=== PATIENT | female | born 1985 | race Caucasian/White ===

== ENCOUNTER 2022-12-06 18:42 | Emergency (ER) | payer OTHER, SELFPAY ==
[2022-12-06 19:03] VITALS: BP 123/81; PULSE 86; RESP 14; TEMP 36.8; O2SAT 99; BMI 27.3
--- NOTE | 2022-12-06 19:14 | DI.RAD.S_ITS ---
PROCEDURE: XR LUMBAR SPINE 2-3V INDICATIONS: Lower back/coccyx pain, numbness upper thighs TECHNIQUE: 3 views of the lumbar spine were acquired. COMPARISON: None. FINDINGS: Bones: 5 [id number] vertebrae are present. There is a minimal leftward curvature of the lumbar spine centered at L3. There is minimal retrolisthesis at L2-L3 and L3-L4. No vertebral body compression fractures. No suspicious bony lesions. Soft tissues: Overlying bowel gas pattern is normal. No suspicious soft tissue calcifications. IMPRESSION: 1. Minimal leftward curvature of the lumbar spine and minimal retrolisthesis at L2-L3 and L3-L4.6 Dictated by: James Klein M.D. on 12/06/2022 at 20:52 Approved by: James Klein M.D. on 12/06/2022 at 20:53
--- NOTE | 2022-12-06 20:30 | PC.NURSE ---
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 reports was sore after that day but states today went to go put pants on and states had several sharp twinges in her lower back causing sharp pain. Pain equal on both sides of lower back. Running spine, pt reports increased pain right about pelvic area. denies any incontinence of bowel or bladder. States has had numbness to outside of upper thighs worse with standing. has had increased fatigue starting Saturday. Did check a test at home which was negative. unsure what the fatigue is from. Has taken excedrin at home with no relief to lower back pain.
[2022-12-06 20:35] VITALS: BP 119/73; PULSE 90; RESP 15; O2SAT 96
--- NOTE | 2022-12-06 21:21 | ED.BACK ---
HPI - Back Pain/Injury General Chief Complaint: Back Pain/Injury Stated Complaint: Lower back pain Time Seen by Provider: 12/06/22 20:30 Source: patient and family Mode of arrival: Ambulatory History of Present Illness HPI Narrative: Patient is a 37-year-old female who is here for evaluation of bilateral lower back pain. She states that she initially hurt her back a couple weeks ago. She was still able to get around and do things but then with a past 24 hour she bent over to pick something up off the ground and had an increase in pain and lower back. No fevers. No urinary symptoms. Does radiate to her legs. No change in bowel habits. Related Data Previous Rx's Medication Instructions Recorded cyclobenzaprine 10 mg tablet 10 mg PO TID PRN muscle spasm #21 12/06/22 tabs prednisone 20 mg tablet 20 mg PO DAILY 6 days #6 tabs 12/06/22 tramadol 50 mg tablet 50 mg PO TID PRN pain #10 tabs 12/06/22 Allergies Allergy/AdvReac Type Severity Reaction Status Date / Time No Known Drug Allergies Allergy Verified 12/06/22 19:12 Review of Systems Constitutional Constitutional: Reports system reviewed and no additional complaints, except as documented Musculoskeletal Musculoskeletal: Reports system reviewed and no additional complaints, except as documented Integumentary/Breasts Skin/Breast: Reports system reviewed and no additional complaints, except as documented Neurologic Neurologic: Reports system reviewed and no additional complaints, except as documented Hematologic/Lymphatic On Anticoagulants: No Patient History Social History Smoking Status: Current every day smoker Smoking Status: Current every day smoker alcohol intake frequency: holidays/special occasions only Substance Use Type: does not use Exam Initial Vital Signs Initial Vital Signs: Vital Signs Temperature 98.3 F 12/06/22 19:03 Pulse Rate 86 12/06/22 19:03 Respiratory Rate 14 12/06/22 19:03 Blood Pressure 123/81 12/06/22 19:03 Pulse Oximetry 99 12/06/22 19:03 Oxygen Delivery Method Room Air 12/06/22 19:03 HENMT Head: normal to inspection and normocephalic Resp Effort & Inspection: normal respiratory effort Cardio Rate: regular rate Back/Spine/Pelvis Thoracic/Lumbar Spine: No paraspinal tenderness, No thoracic spinal tenderness and No lumbar spinal tenderness Sacroiliac Joints: tender to palpation bilateral Neuro General: patient alert and patient awake Course Orders Ordered: ED Orders 12/06/22 19:14 XR lumbar spine 2-3V Stat Discontinued Medications Hydrocodone Bitart/Acetaminophen (Hydrocodone/Acet 5/325 Tablet) 1 tab PO NOW ONE Stop: 12/06/22 21:22 Last Admin: 12/06/22 21:32 Dose: 1 tab Documented By: NORM Ketorolac Tromethamine (Ketorolac 30 Mg/Ml Vial) 30 mg IM NOW ONE Stop: 12/06/22 21:22 Last Admin: 12/06/22 21:33 Dose: 30 mg Documented By: NORM Prednisone (Prednisone 20 Mg Tablet) 20 mg PO NOW ONE Stop: 12/06/22 21:22 Last Admin: 12/06/22 21:33 Dose: 20 mg Documented By: NORM Vital Signs Vital signs: Vital Signs - 8 hr 12/06/22 19:03 12/06/22 20:35 Temperature 98.3 F Pulse Rate 86 90 Respiratory Rate 14 15 Blood Pressure 123/81 119/73 Pulse Oximetry 99 96 Oxygen Delivery Method Room Air Room Air MDM - Back Pain/Injury Imaging Data Extremity x-ray #1: Radiologist's Impression: PROCEDURE:? XR LUMBAR SPINE 2-3V ? INDICATIONS:? Lower back/coccyx pain, numbness upper thighs ? TECHNIQUE:? 3 views of the lumbar spine were acquired.? ? COMPARISON:? None. ? FINDINGS:? ? Bones:? 5 [id number] vertebrae are present.? There is a minimal leftward curvature of the lumbar spine centered at L3.? There is minimal retrolisthesis at L2-L3 and L3-L4.? No vertebral body compression fractures.? No suspicious bony lesions.? ? Soft tissues:? Overlying bowel gas pattern is normal.? No suspicious soft tissue calcifications.? ? ? IMPRESSION:? ? 1. Minimal leftward curvature of the lumbar spine and minimal retrolisthesis at L2-L3 and L3-L4.6? [facility] Narrative Medical decision making narrative: No fractures on the x-ray. Clearly a musculoskeletal etiology. Low suspicion for cauda equina. No indication for advanced imaging today. Will sent home with symptom treatment. Will have her contact her medical department for follow-up. She expressed understanding and agreement. Discharge Plan Departure Patient Disposition: Home Clinical Impression: Strain of lumbar region Instructions: DI for Low Back Pain Activity Restrictions/Additional Instructions: I do recommend that you contact your medical department for a follow-up. Take the medications as directed. Return to the emergency department for new symptoms. Prescriptions: New prednisone 20 mg tablet 20 mg PO DAILY 6 Days Qty: 6 0RF cyclobenzaprine 10 mg tablet 10 mg PO TID PRN (Reason: muscle spasm) Qty: 21 0RF tramadol 50 mg tablet 50 mg PO TID PRN (Reason: pain) Qty: 10 0RF Referrals: ProviderDanielle [Primary Care Provider] - Stand Alone Forms: Patient Portal/API
[2022-12-06] MEDS: HYDROCODONE/ACET 5/325 TABLET 1 TAB PO (21:32)
[2022-12-06] MEDS: KETOROLAC 30 MG/ML VIAL IM (21:33)
[2022-12-06] MEDS: predniSONE 20 MG TABLET PO (21:33)
== END 2022-12-06 21:40 | disposition home or self-care (01) ==
PROVIDERS: Emergency Provider Emergency Medicine
DX: S39.012A Strain of muscle, fascia and tendon of lower back, initial encounter (principal); X58.XXXA Exposure to other specified factors, initial encounter
CPT/HCPCS: 72100; 96372; 99283; J1885

== ENCOUNTER → 2024-05-01 09:00 | Outpatient (CLI) | payer OTHER, SELFPAY ==
[2024-05-01 13:55] LABS: Urine N gonorrhoeae NOT DETECTED
[2024-05-01 13:56] LABS: Urine Chlamydia NOT DETECTED
== END ==
PROVIDERS: Visit Provider Obstetrics & Gynecology
DX: Z34.80 Encounter for supervision of other normal pregnancy, unspecified trimester (principal)
CPT/HCPCS: 87491; 87591

== ENCOUNTER → 2024-05-01 09:11 | Outpatient (CLI) | payer OTHER, SELFPAY ==
[2024-05-01 10:24] LABS: Add Manual Diff / Slide Review NO; Basophils Absolute Auto 0 /uL (0-100); Basophils Percent Auto 0.4 % (0-2); Eosinophils Absolute Auto 100 /uL (0-450); Eosinophils Percent Auto 0.9 % (2-4); Hematocrit 39.3 % (36-46); Hemoglobin 13.5 g/dL (12.0-16.0); Lymphocytes Absolute Auto 2200 /uL (1100-4500); Lymphocytes Percent Auto 37.8 % (25-40); Mean Corpuscular HGB Conc 34.4 % (30-36); Mean Corpuscular Hemoglobin 31.2 PG (26-34); Mean Corpuscular Volume 90.8 fL (80-100); Monocytes Absolute Auto 600 /uL (0-900); Monocytes Percent Auto 10.4 % (3-14); Neutrophils Absolute Auto 3000 /uL (1500-7000); Neutrophils Percent Auto 50.5 % (50-75); Platelet Count 296 X10^3/uL (150-400); Red Blood Cell Count 4.32 X10^6/uL (4.0-5.2); Red Cell Distribution Width 12.6 % (11.6-14.8); White Blood Cell Count 5.9 X10^3/uL (4.5-11.0)
[2024-05-02 07:08] LABS: Varicella IgG Antibody Reactive (Non Reactive)
[2024-05-02 07:38] LABS: RPR Screen Non Reactive (Non Reactive)
[2024-05-04 16:03] LABS: Hepatitis B Surface Antigen NEGATIVE s/c (NEGATIVE)
[2024-05-04 16:18] LABS: HIV 1 & 2 Ab/Ag 4th Gen Combo NEGATIVE (NEGATIVE); Hep C Virus Ab w/Reflex Quant NEGATIVE s/c (NEGATIVE)
== END ==
PROVIDERS: Referring Provider Obstetrics & Gynecology; Visit Provider Obstetrics & Gynecology
DX: Z34.80 Encounter for supervision of other normal pregnancy, unspecified trimester (principal)
CPT/HCPCS: 36415; 80055; 86787; 86803; 86850; 86900; 86901; 87389; 87491; 87591

== ENCOUNTER → 2024-05-29 15:44 | Outpatient (CLI) | payer OTHER, SELFPAY | PROVIDERS: Visit Provider Obstetrics & Gynecology | DX: Z34.80 Encounter for supervision of other normal pregnancy, unspecified trimester (principal) | CPT/HCPCS: 87086 ==

== ENCOUNTER → 2024-05-29 16:19 | Outpatient (CLI) | payer OTHER, SELFPAY ==
[2024-05-29 17:33] LABS: Natera Collection Specimen Collected
== END ==
LOC: LAB 16:20
PROVIDERS: Referring Provider Obstetrics & Gynecology; Visit Provider Obstetrics & Gynecology
DX: O09.521 Supervision of elderly multigravida, first trimester (principal); Z3A.13 13 weeks gestation of pregnancy
CPT/HCPCS: 36415

== ENCOUNTER → 2024-07-01 16:06 | Outpatient (CLI) | payer OTHER, SELFPAY | PROVIDERS: Referring Provider Obstetrics & Gynecology; Visit Provider Obstetrics & Gynecology | DX: Z34.82 Encounter for supervision of other normal pregnancy, second trimester (principal); Z3A.18 18 weeks gestation of pregnancy | CPT/HCPCS: 36415; 82105 ==

== ENCOUNTER → 2024-07-14 07:39 | Outpatient (CLI) | payer OTHER, SELFPAY ==
--- NOTE | 2024-07-14 07:40 | DI.US.S_ITS ---
PROCEDURE: US OB >= 14 WEEKS FETUS INDICATIONS: 20 week anatomy OUTSIDE/PRIOR DATING DATA: Last menstrual period (LMP): 03/02/2024. LMP-based estimated date of delivery (LYNDA): 12/07/2024 Estimated date of delivery (LYNDA) from first dating scan: 12/01/2024. The calculations are made using the working LYNDA of 12/01/2024. TECHNIQUE: Real-time scanning was performed of the fetus, with image documentation and biometric measurements. Endovaginal scanning: No COMPARISON: None. FINDINGS: General: A single living intrauterine gestation is present. Presentation: Breech. Placenta: Placental position is posterior , without previa. Amniotic fluid index: 10.7 cm, normal range is 5-24 cm. Single deepest vertical pocket is 3.2 cm. heart rate: 149 beats per minute. Maternal cervical canal: 4.2 cm long. Normal lower limit is 2.5 cm. biometrics: Biparietal diameter: 4.6 cm, 20 week 0 day Head circumference: 17.5 cm, 20 week 0 day Abdominal circumference: 15.8 cm, 21 week 0 day Femur length: 3.0 cm, 19 week 2 day Clinically estimated gestational age: 20 week 0 day Composite gestational age from present scan: 20 week 1 day Estimated weight and percentile: 336 g, 55 percentile Anatomic survey: Neuro: Ventricles are non-dilated at less than 10 mm. Cisterna magna is normal at 3-11 mm. Cerebellum is normal in size and morphology. Nuchal skin fold: Normal at less than 6 mm between 14-21 weeks gestational age. Face: Nose and lips, facial profile are normal. Spine: No evidence for spina bifida. Heart: 4-chambered heart is present, with normal ventricular outflow tracts. Diaphragm: Diaphragm is intact. Stomach: Left-sided stomach is present. Kidneys: No hydronephrosis. Normal is less than 5 mm in 2nd trimester, less than 7 mm in 3rd trimester. Cord: 3-vessel cord has orthotopic insertion. Bladder: Normal in size. Extremities: All 4 extremities identified. IMPRESSION: Single live intrauterine consistent with a 20 week 1 day gestation by current ultrasound. Normal anatomic survey Approved by: Juan David Willard M.D. on 07/14/2024 at 17:10
[2024-07-16 19:36] LABS: AFP Value 49.2 ng/mL (.); Gestational Age EDD (.); Insulin Dep Diabetes No (.); OSBR Risk 1IN 10000 (.); Results Report (.); Test Results *Screen Negative* (.)
== END ==
PROVIDERS: Referring Provider Obstetrics & Gynecology; Visit Provider Obstetrics & Gynecology
DX: Z34.82 Encounter for supervision of other normal pregnancy, second trimester (principal); Z3A.20 20 weeks gestation of pregnancy; Z36.0 Encounter for antenatal screening for chromosomal anomalies
CPT/HCPCS: 36415; 76811; 82105

== ENCOUNTER → 2024-09-01 10:28 | Outpatient (CLI) | payer OTHER, SELFPAY ==
[2024-09-01 12:09] LABS: Hematocrit 36.3 % (36-46); Hemoglobin 12.4 g/dL (12.0-16.0)
[2024-09-01 12:47] LABS: GTT (PREG) 1 Hour PP 50gm Dose 167 mg/dL (76-139)
== END ==
PROVIDERS: Referring Provider Obstetrics & Gynecology; Visit Provider Obstetrics & Gynecology
DX: Z34.82 Encounter for supervision of other normal pregnancy, second trimester (principal); Z3A.28 28 weeks gestation of pregnancy
CPT/HCPCS: 36415; 82950; 85014; 85018

== ENCOUNTER → 2024-09-08 07:45 | Outpatient (CLI) | payer OTHER, SELFPAY ==
[2024-09-08 09:30] LABS: Glucose Fasting Gestational 81 mg/dL (76-95)
[2024-09-08 10:12] LABS: Glucose 1 Hour Gest 146 mg/dL (76-180)
[2024-09-08 11:23] LABS: Glucose Tol Interp,Gestational INTERPRETATION
[2024-09-08 12:06] LABS: Glucose 3 Hour Gest 106 mg/dL (76-140)
[2024-09-09 15:26] LABS: Glucose 2 Hour Gest 159 mg/dL (76-155)
== END ==
PROVIDERS: Referring Provider Obstetrics & Gynecology; Visit Provider Obstetrics & Gynecology
DX: O99.810 Abnormal glucose complicating pregnancy (principal)
CPT/HCPCS: 36415; 82951; 82952